=== PATIENT | male | born 1975 | race Caucasian/White ===

== ENCOUNTER 2019-10-30 03:25 | Emergency (ER) | payer MEDICAID, OTHER ==
[~2019-10-30] VITALS: Ht 175.3 cm; Wt 86.4 kg
[~2019-10-30 03:25] MED LIST: HYDR-4383 PO; IBUP-1984 PO; IBUP-24 PO
[2019-10-30 03:28] VITALS: BP 167/92
[2019-10-30] MEDS ORDERED: ibuprofen tablet 400 MG TABLET PO STA (03:32)
[2019-10-30] MEDS ORDERED: acetaminophen 325mg tablet PO ONE (04:00)
== END 2019-10-30 05:27 | disposition home or self-care (01) ==
LOC: ER 03:26
DX: M79.642 Pain in left hand (principal); F17.200 Nicotine dependence, unspecified, uncomplicated; X50.1XXA Overexertion from prolonged static or awkward postures, initial encounter; Y93.89 Activity, other specified; Y92.89 Other specified places as the place of occurrence of the external cause; Y99.9 Unspecified external cause status
CPT/HCPCS: 29125; 73140; 99283

== ENCOUNTER 2019-12-18 01:22 | Emergency (ER) | payer OTHER ==
[~2019-12-18] VITALS: Ht 175.3 cm; Wt 84.1 kg
[2019-12-18 01:36] VITALS: BP 146/84
[2019-12-18] MEDS ORDERED: AMOX-117 PO (02:00)
== END 2019-12-18 02:09 | disposition home or self-care (01) ==
LOC: ER 01:22
DX: S60.416A Abrasion of right little finger, initial encounter (principal); F17.200 Nicotine dependence, unspecified, uncomplicated; Z72.89 Other problems related to lifestyle; Z79.899 Other long term (current) drug therapy; Y08.89XA Assault by other specified means, initial encounter; Y93.89 Activity, other specified; Y92.89 Other specified places as the place of occurrence of the external cause; Y99.8 Other external cause status
CPT/HCPCS: 99283

== ENCOUNTER 2022-06-14 15:09 | Emergency (ER) | payer BC, OTHER ==
[~2022-06-14] VITALS: Ht 175.3 cm; Wt 81.8 kg
[2022-06-14 15:15] VITALS: BP 154/81
[2022-06-14] MEDS ORDERED: ketorolac trometh inj. 60 MG/2 ML VIAL IM ONE (15:20)
[2022-06-14] MEDS ORDERED: IBUP-1986 PO (15:38)
== END 2022-06-14 16:15 | disposition home or self-care (01) ==
LOC: ER 15:09
DX: M25.571 Pain in right ankle and joints of right foot (principal)
CPT/HCPCS: 73610; 96372; 99283; J1885; L1930; A6449

== ENCOUNTER 2023-04-27 08:00 | Emergency (ER) | payer BC ==
[~2023-04-27] VITALS: Ht 175.3 cm; Wt 79.5 kg
[~2023-04-27 08:00] MED LIST changes: +IBUP-1986 PO
[2023-04-27 08:05] VITALS: BP 137/94
[2023-04-27] MEDS ORDERED: ibuprofen 200mg tablet PO ONE (08:35)
== END 2023-04-27 10:29 | disposition home or self-care (01) ==
LOC: ER 08:01
DX: S90.31XA Contusion of right foot, initial encounter (principal); Z72.89 Other problems related to lifestyle; Z79.899 Other long term (current) drug therapy; W22.8XXA Striking against or struck by other objects, initial encounter; Y93.89 Activity, other specified; Y92.89 Other specified places as the place of occurrence of the external cause; Y99.8 Other external cause status
CPT/HCPCS: 73630; 99283

== ENCOUNTER 2025-01-26 09:49 | Emergency (ER) | payer BC ==
[~2025-01-26] VITALS: Ht 172.7 cm; Wt 76.3 kg
[~2025-01-26 09:49] MED LIST changes: -HYDR-4383 PO; -IBUP-1984 PO; -IBUP-1986 PO; -IBUP-24 PO; +NICO-578 TOP; +PANT40TA54 PO
[2025-01-26 09:51] VITALS: PULSE 101; RESP 12; TEMP 98.1; O2SAT 100
[2025-01-26] MEDS ORDERED: ALPR2TAB2 PO (12:00)
[2025-01-26] MEDS ORDERED: HYDR-3973 PO (12:00)
[2025-01-26] MEDS: methylPREDNISolone acetate 80mg/ml inj**IM only IM ONE (12:02)
[2025-01-26] MEDS: LIDOcaine 1% W/epiNEPHrine 1:100,000 20ml vial SQ ONE (12:03)
== END 2025-01-26 12:09 | disposition home or self-care (01) ==
LOC: ER 09:49
DX: F41.9 Anxiety disorder, unspecified (principal); M65.4 Radial styloid tenosynovitis [de Quervain]; M25.531 Pain in right wrist
CPT/HCPCS: 20552; 29105; 29125; 73130; 99283; 99284